=== PATIENT | female | born 1950 | race Caucasian/White ===

== ENCOUNTER 2020-10-04 11:28 | Emergency (ER) | payer MEDICARE, OTHER ==
[~2020-10-04] VITALS: Ht 162.6 cm; Wt 55.8 kg
[~2020-10-04 11:28] MED LIST: ASPI81CH; ASPI81EC PO; ATOR20; B-12500 MCG; Bactrim Ds Tab1 EACH PO; CEPH500 PO; CHOL10002; CHOL10002 PO; COENZYME Q10 PO; CYAN1000 PO; FISH1000; FISH1000 PO; NAPR500 PO; OXYACE5T PO; PRAV20 PO; VITAMIN D PO
[2020-10-04 11:49] LABS: Source, Urine Clean Catch
[2020-10-04 11:56] LABS: Bilirubin, Urine Neg (Neg); Blood, Urine Neg (Neg); Glucose Qualitative, Urine Neg (Neg); Ketones, Urine Neg (Neg); Leukocyte Esterase, Urine Neg (Neg); Nitrite, Urine Neg (Neg); Protein, Urine 2+ (Neg); Urobilinogen, Urine NORM (Normal)
[2020-10-04 12:03] LABS: BASOPHILS ABSOLUTE AUTO 0.05 K/mm3 (0.00-0.23); BASOPHILS PERCENT AUTO 0 % (0-2); EOSINOPHILS ABSOLUTE AUTO 0.02 K/mm3 (0.00-0.68); EOSINOPHILS PERCENT AUTO 0 % (0-6); Hematocrit 48.5 % (33.0-51.0); IMMATURE GRAN ABSOLUTE AUTO 0.08 K/mm3 (0.00-0.10); IMMATURE GRAN PERCENT AUTO 1 % (0-1); LYMPHOCYTES ABSOLUTE AUTO 1.15 K/mm3 (0.84-5.20); LYMPHOCYTES PERCENT AUTO 7 % (21-46); MONOCYTES PERCENT AUTO 6 % (4-13); Mean Corpuscular HGB Conc 30.9 g/dL (31.5-36.5); Mean Corpuscular Volume 84 fL (80-100); Mean Platelet Volume 11.7 fL (9.1-12.4); NEUTROPHILS ABSOLUTE AUTO 14.29 K/mm3 (1.96-9.15); NEUTROPHILS PERCENT AUTO 87 % (41-73); Platelet Count 225 K/mm3 (150-400); RDW Coefficient Variation 13.3 % (11.7-14.2); RDW Standard Deviation 41.1 fL (35.1-46.3); Red Blood Cell Count 5.76 M/mm3 (3.80-5.20); White Blood Cell Count 16.49 K/mm3 (4.00-11.30)
[2020-10-04 12:06] LABS: Appearance, Urine Clear (Clear); Color, Urine Yellow (P-Yellow)
[2020-10-04 12:07] LABS: Red Blood Cells, Urine 0-2 /hpf (0-2)
[2020-10-04 12:08] LABS: Bacteria Few /hpf; Mucus Light (0-Heavy); Squamous Epithelial Cells Mod /hpf (Few)
[2020-10-04 12:38] LABS: Alanine Aminotransfer (ALT/SGP 40 U/L (12-78); Albumin, Blood 3.9 g/dL (3.4-5.0); Albumin/Globulin Ratio 1.1 (0.8-1.8); Alk Phos 152 U/L (50-136); Anion Gap 4 mmol/L (6-16); Aspartate Aminotrans (AST/SGOT 27 U/L (12-37); Bilirubin, Total 0.4 mg/dL (0.1-1.0); Blood Urea Nitrogen 19 mg/dL (8-24); Bun/Creatinine Ratio 20.1 (12.0-20.0); CO2, Blood 31 mmol/L (21-32); Calcium, Blood 9.3 mg/dL (8.5-10.1); Chloride, Blood 105 mmol/L (98-108); Creatinine, Blood 0.95 mg/dL (0.40-1.00); Globulin, Blood 3.7 g/dL (2.2-4.0); Glomerular Filtration Rate >60 (60-); Glucose, Blood 119 mg/dL (70-99); Potassium, Blood 4.1 mmol/L (3.5-5.5); Sodium, Blood 140 mmol/L (136-145); Total Protein, Blood 7.6 g/dL (6.4-8.2)
[2020-10-04] MEDS ORDERED: TRAM50 PO (13:53)
[2020-10-04] MEDS ORDERED: ONDA4ODT MM (13:53)
[2020-10-04] MEDS ORDERED: IBUP600 PO (13:53)
== END 2020-10-04 14:08 | disposition home or self-care (01) ==
LOC: ER 11:28
PROVIDERS: Emergency Medicine
DX: N13.2 Hydronephrosis with renal and ureteral calculous obstruction (principal); Z79.82 Long term (current) use of aspirin; Z79.899 Other long term (current) drug therapy
CPT/HCPCS: 36415; 74176; 80053; 81001; 85025; 96374; 96375; 99284-25; J1885; J2405

== ENCOUNTER → 2022-01-12 | Outpatient (CLI) | payer MEDICARE, OTHER ==
[~2022-01-12] MED LIST changes: +IBUP600 PO; +ONDA4ODT MM; +ROSU10TA; +TRAM50 PO
== END | disposition home or self-care (01) ==
LOC: LAB 08:50 → LAB SHORT 08:50
DX: R82.71 Bacteriuria (principal)
CPT/HCPCS: 87086

== ENCOUNTER 2022-01-24 13:32 | Emergency (ER) | payer MEDICARE, OTHER ==
[~2022-01-24] VITALS: Ht 162.6 cm; Wt 60.3 kg
[2022-01-24 14:21] LABS: BASOPHILS ABSOLUTE AUTO 0.04 K/mm3 (0.00-0.23); BASOPHILS PERCENT AUTO 1 % (0-2); EOSINOPHILS ABSOLUTE AUTO 0.25 K/mm3 (0.00-0.68); EOSINOPHILS PERCENT AUTO 3 % (0-6); Hematocrit 42.1 % (33.0-51.0); IMMATURE GRAN ABSOLUTE AUTO 0.03 K/mm3 (0.00-0.10); IMMATURE GRAN PERCENT AUTO 0 % (0-1); LYMPHOCYTES ABSOLUTE AUTO 1.49 K/mm3 (0.84-5.20); LYMPHOCYTES PERCENT AUTO 18 % (21-46); MONOCYTES PERCENT AUTO 10 % (4-13); Mean Corpuscular HGB 25.5 pg (26.0-34.0); Mean Corpuscular HGB Conc 30.9 g/dL (31.5-36.5); Mean Corpuscular Volume 83 fL (80-100); NEUTROPHILS ABSOLUTE AUTO 5.54 K/mm3 (1.96-9.15); NEUTROPHILS PERCENT AUTO 68 % (41-73); RDW Coefficient Variation 13.5 % (11.7-14.2); RDW Standard Deviation 40.7 fL (35.1-46.3); White Blood Cell Count 8.15 K/mm3 (4.00-11.30)
[2022-01-24 14:27] LABS: Albumin, Blood 3.5 g/dL (3.4-5.0); Bilirubin, Total 0.4 mg/dL (0.1-1.0); Bun/Creatinine Ratio 26.9 (12.0-20.0); Calcium, Blood 9.5 mg/dL (8.5-10.1); Creatinine, Blood 1.04 mg/dL (0.40-1.00); Globulin, Blood 3.5 g/dL (2.2-4.0); Potassium, Blood 3.9 mmol/L (3.5-5.5)
[2022-01-24 14:37] LABS: Platelet Count 188 K/mm3 (150-400)
[2022-01-24] MEDS ORDERED: METO50ER (14:51)
[2022-01-24 16:16] LABS: Source, Urine Clean Catch
[2022-01-24 16:20] LABS: Appearance, Urine Clear (Clear); Bilirubin, Urine Neg (Neg); Blood, Urine Neg (Neg); Color, Urine Yellow (P-Yellow); Glucose Qualitative, Urine Neg (Neg); Ketones, Urine Neg (Neg); Leukocyte Esterase, Urine Neg (Neg); Nitrite, Urine Neg (Neg); Protein, Urine 1+ (Neg); Urobilinogen, Urine NORM (Normal)
== END 2022-01-24 17:14 | disposition home or self-care (01) ==
LOC: ER 13:32
PROVIDERS: Emergency Medicine
DX: R55 Syncope and collapse (principal); R94.5 Abnormal results of liver function studies
CPT/HCPCS: 71046; 80053; 82947; 83880; 84484; 85025; 93005; 93010; 99284-25; J7030

== ENCOUNTER → 2023-04-08 | Outpatient (CLI) | payer MEDICARE, OTHER ==
[~2023-04-08] MED LIST changes: +METO50ER
== END | disposition home or self-care (01) ==
LOC: LAB SHORT 18:35 → LAB 18:35
PROVIDERS: Internal Medicine Endocrinology, Diabetes & Metabolism
DX: K52.9 Noninfective gastroenteritis and colitis, unspecified (principal)
CPT/HCPCS: 82710

== ENCOUNTER 2025-07-27 10:00 | Inpatient (IN) | payer MEDICARE, OTHER ==
[~2025-07-27] VITALS: Ht 162.6 cm; Wt 63.5 kg
[~2025-07-27 10:00] MED LIST changes: -ASPI81CH; +ASPI81CH PO; -ATOR20; +ATOR20 PO; -B-12500 MCG; +B-12500 MCG PO; -CHOL10002; +Crestor40 MG PO; +FISH OIL 1,0001 EA10 PO; -FISH1000; -METO50ER; +METO50ER PO; -ROSU10TA; +VITAMIN D325 MC3 PO
[2025-07-27] MEDS ORDERED: Morphine Sulfate 4 MG/1 ML Injection IV ONE ×2 (10:25→12:50)
[2025-07-27] MEDS ORDERED: Ondansetron HCl 2 MG / ML 2ML Vial IV ONE (10:25)
[2025-07-27 10:32] LABS: BASOPHILS ABSOLUTE AUTO 0.05 K/mm3 (0.00-0.23); BASOPHILS PERCENT AUTO 1 % (0-2); EOSINOPHILS ABSOLUTE AUTO 0.13 K/mm3 (0.00-0.68); EOSINOPHILS PERCENT AUTO 1 % (0-6); Hematocrit 45.6 % (33.0-51.0); Hemoglobin 14.1 g/dL (11.5-16.0); IMMATURE GRAN ABSOLUTE AUTO 0.07 K/mm3 (0.00-0.10); IMMATURE GRAN PERCENT AUTO 1 % (0-1); LYMPHOCYTES ABSOLUTE AUTO 1.68 K/mm3 (0.84-5.20); LYMPHOCYTES PERCENT AUTO 18 % (21-46); MONOCYTES ABSOLUTE AUTO 0.79 K/mm3 (0.16-1.47); MONOCYTES PERCENT AUTO 9 % (4-13); Mean Corpuscular HGB Conc 30.9 g/dL (31.5-36.5); Mean Corpuscular Volume 82 fL (80-100); NEUTROPHILS ABSOLUTE AUTO 6.62 K/mm3 (1.96-9.15); NEUTROPHILS PERCENT AUTO 71 % (41-73); NRBC ABSOLUTE 0.00 K/mm3 (0.00-0.02); NRBC Auto 0.0 /100 WBC (0.0-0.2); Platelet Count 206 K/mm3 (150-400); RDW Coefficient Variation 15.1 % (11.7-14.2); RDW Standard Deviation 45.5 fL (35.1-46.3)
[2025-07-27 10:43] LABS: Anion Gap 8.0 mmol/L (3-11); Blood Urea Nitrogen 31.0 mg/dL (8-24); CO2, Blood 25.0 mmol/L (21-32); Calcium, Blood 9.1 mg/dL (8.5-10.1); Chloride, Blood 111.0 mmol/L (98-108); Creatinine, Blood 0.9 mg/dL (0.40-1.00); Glucose, Blood 112.0 mg/dL (70-99); Potassium, Blood 4.6 mmol/L (3.5-5.5); Sodium, Blood 139.0 mmol/L (136-145)
[2025-07-27] MEDS ORDERED: Morphine Sulfate 4 MG/1 ML Injection IV PRN (13:05)
[2025-07-27] MEDS ORDERED: FLU VACC TS2025(65UP)/MF59C/PF 45 MCG/0.5 ML SYRINGE IM SCH (13:05)
[2025-07-27 14:51] VITALS: BP 145/113
[2025-07-27 14:52] VITALS: BP 159/103
--- NOTE | 2025-07-27 15:37 | NUR ---
ADMIT ER ADMIT WITH LEFT FEMUR FX. PT ALERT AND ORIENTED X4. LEFT FEMUR DEFORMITY NOTED, SUPPORTED WITH PILLOWS. PT REPORTS N/T TO BLE R/T BASELINE NEUROPATHY. ABLE TO WIGGLE TOES, CAP REFILL <3 SECONDS, PEDAL PULSES STRONG AND PALPABLE. PT REPORTS 10/10 PAIN WITH MOVEMENT/REPOSITIONING. MEDICATED IN ER PRIOR TO ARRIVAL. EDUCATED PT ON BUCKS TRACTION FOR COMFORT PRN--PT DECLINED. ICE TO LEFT THIGH. NEW PUREWICK PLACED, PT PLACED IN GOWN, AND REPOSITIONED FOR COMFORT. PT DECLINES NEED FOR PAIN MEDICATION WHEN RESTING. ORIENTED TO CALL LIGHT AND TREATMENT PLAN. SPOUSE AT BEDSIDE FOR SUPPORT. CALL LIGHT WITHIN REACH. ER REPORTED DR. NELSON CONSULTED ON PT IN ER AND PLAN FOR SURGERY TOMORROW.
[2025-07-27 17:20] VITALS: BP 151/79
[2025-07-27 19:27] VITALS: BP 150/84
[2025-07-28] VITALS (16 sets, daily range): BP systolic 114–185; BP diastolic 69–106
[2025-07-28] MEDS ORDERED: CeFAZolin Sodium 2,000 MG in NS 100 ML IV SCH (04:00)
[2025-07-28] MEDS ORDERED: Tranexamic Acid 100 ML IV SCH (04:00)
--- NOTE | 2025-07-28 04:18 | NUR ---
NOC SUMMARY- PT PAIN MANAGED WELL. PT IS VOIDING VIA PUREWICK. ICE PACKS HELP WITH LEG DISCOMFORT. PT HAS GOOD CAP REFILL AND PEDAL PULSES. PT HAS BEEN ABLE TO REST COMFORTABLY. CHG WIPE DOWN COMPLETE. CALL LIGHT IN REACH.
[2025-07-28 05:50] LABS: BASOPHILS ABSOLUTE AUTO 0.03 K/mm3 (0.00-0.23); BASOPHILS PERCENT AUTO 0 % (0-2); EOSINOPHILS ABSOLUTE AUTO 0.29 K/mm3 (0.00-0.68); EOSINOPHILS PERCENT AUTO 2 % (0-6); Hematocrit 44.4 % (33.0-51.0); Hemoglobin 13.6 g/dL (11.5-16.0); IMMATURE GRAN ABSOLUTE AUTO 0.04 K/mm3 (0.00-0.10); IMMATURE GRAN PERCENT AUTO 0 % (0-1); LYMPHOCYTES ABSOLUTE AUTO 1.01 K/mm3 (0.84-5.20); LYMPHOCYTES PERCENT AUTO 8 % (21-46); MONOCYTES ABSOLUTE AUTO 1.15 K/mm3 (0.16-1.47); MONOCYTES PERCENT AUTO 9 % (4-13); Mean Corpuscular HGB Conc 30.6 g/dL (31.5-36.5); Mean Corpuscular Volume 82 fL (80-100); NEUTROPHILS ABSOLUTE AUTO 10.63 K/mm3 (1.96-9.15); NEUTROPHILS PERCENT AUTO 81 % (41-73); NRBC ABSOLUTE 0.00 K/mm3 (0.00-0.02); NRBC Auto 0.0 /100 WBC (0.0-0.2); Platelet Count 184 K/mm3 (150-400); RDW Coefficient Variation 15.2 % (11.7-14.2); RDW Standard Deviation 45.1 fL (35.1-46.3)
[2025-07-28 06:10] LABS: Anion Gap 7.0 mmol/L (3-11); Blood Urea Nitrogen 28.0 mg/dL (8-24); CO2, Blood 28.0 mmol/L (21-32); Calcium, Blood 9.0 mg/dL (8.5-10.1); Chloride, Blood 106.0 mmol/L (98-108); Creatinine, Blood 0.94 mg/dL (0.40-1.00); Glucose, Blood 143.0 mg/dL (70-99); Potassium, Blood 4.4 mmol/L (3.5-5.5); Sodium, Blood 137.0 mmol/L (136-145)
[2025-07-28] MEDS ORDERED: NS 1,000 ML IV SCH (11:40)
[2025-07-28] MEDS ORDERED: FentaNYL Citrate 50 MCG/ML 2 ML Injection IV PRN ×2 (13:50)
[2025-07-28] MEDS ORDERED: Albuterol 2.5 MG/3 ML VIAL INH PRN (13:50)
[2025-07-28] MEDS ORDERED: HYDROmorphone HCl/Pf 1MG SYR IV PRN ×3 (13:50→19:30)
[2025-07-28] MEDS ORDERED: Ondansetron HCl 2 MG / ML 2ML Vial IV PRN ×2 (13:50→19:25)
[2025-07-28] MEDS ORDERED: CeFAZolin Sodium 2,000 MG VIAL ONE (14:40)
[2025-07-28] MEDS ORDERED: Dexamethasone Sod Phos 10 MG/ML 1ML VIAL ONE (16:27)
[2025-07-28] MEDS ORDERED: Ondansetron HCl 2 MG / ML 2ML Vial ONE (16:27)
[2025-07-28] MEDS ORDERED: Phenylephrine HCl 100 MCG/ML-NS 10MLSYR (1MG/10ML) ONE (16:53)
[2025-07-28] MEDS ORDERED: Ketorolac Tromethamine 30mg Vial ONE (17:36)
[2025-07-28] MEDS ORDERED: HYDROmorphone HCl/Pf 1MG SYR ONE (18:04)
[2025-07-28] MEDS ORDERED: Artificial Tear Opth Oint 3.5 GM ONE (19:12)
[2025-07-28] MEDS ORDERED: FLU VACC TS2025-26(6MOS UP)/PF 45 MCG/0.5 ML SYRINGE IM ONE (19:20)
[2025-07-28] MEDS ORDERED: Magnesium Hydroxide Conc 10 ML UDC PO PRN (19:30)
[2025-07-28] MEDS ORDERED: Naloxone HCl 0.4MG / ML 1ML Vial IV PRN (19:30)
[2025-07-29] MEDS ORDERED: CeFAZolin Sodium 2,000 MG in NS 100 ML IV SCH
[2025-07-29 05:22] LABS: BASOPHILS ABSOLUTE AUTO 0.03 K/mm3 (0.00-0.23); BASOPHILS PERCENT AUTO 0 % (0-2); EOSINOPHILS ABSOLUTE AUTO 0.00 K/mm3 (0.00-0.68); EOSINOPHILS PERCENT AUTO 0 % (0-6); Hematocrit 41.6 % (33.0-51.0); Hemoglobin 12.5 g/dL (11.5-16.0); IMMATURE GRAN ABSOLUTE AUTO 0.06 K/mm3 (0.00-0.10); IMMATURE GRAN PERCENT AUTO 1 % (0-1); LYMPHOCYTES ABSOLUTE AUTO 0.40 K/mm3 (0.84-5.20); LYMPHOCYTES PERCENT AUTO 4 % (21-46); MONOCYTES ABSOLUTE AUTO 0.79 K/mm3 (0.16-1.47); MONOCYTES PERCENT AUTO 7 % (4-13); Mean Corpuscular HGB Conc 30.0 g/dL (31.5-36.5); Mean Corpuscular Volume 82 fL (80-100); NEUTROPHILS ABSOLUTE AUTO 10.28 K/mm3 (1.96-9.15); NEUTROPHILS PERCENT AUTO 89 % (41-73); NRBC ABSOLUTE 0.00 K/mm3 (0.00-0.02); NRBC Auto 0.0 /100 WBC (0.0-0.2); Platelet Count 178 K/mm3 (150-400); RDW Coefficient Variation 15.1 % (11.7-14.2); RDW Standard Deviation 45.3 fL (35.1-46.3)
[2025-07-29 05:45] LABS: Anion Gap 7.0 mmol/L (3-11); Blood Urea Nitrogen 30.0 mg/dL (8-24); CO2, Blood 27.0 mmol/L (21-32); Calcium, Blood 8.6 mg/dL (8.5-10.1); Chloride, Blood 108.0 mmol/L (98-108); Creatinine, Blood 1.06 mg/dL (0.40-1.00); Glucose, Blood 128.0 mg/dL (70-99); Magnesium, Blood 2.3 mg/dL (1.6-2.4); Potassium, Blood 4.3 mmol/L (3.5-5.5); Sodium, Blood 138.0 mmol/L (136-145)
--- NOTE | 2025-07-29 06:03 | NUR ---
SHIFT SUMMARY POD 1 ORIF L FEMUR. A&O X4. PT DENIES PAIN. AQUACEL DRESSING C/D/I. POLAR PACK IN PLACE. PT TOLERATING DIET, DENIES N&V. AWAITING POST OP PT EVAL AND MOBILITY. CALL LIGHT WITHIN REACH.
[2025-07-29 07:19] VITALS: BP 164/72
[2025-07-29] MEDS ORDERED: Cholecalciferol 1000 Unit Tablet (=25MCG) PO SCH (09:00)
[2025-07-29] MEDS ORDERED: Crestor40 MG PO (12:24)
[2025-07-29 14:44] VITALS: BP 155/72
--- NOTE | 2025-07-29 17:01 | NUR ---
SUMMARY ASSUMED CARE OF PT @0700. VSS. AXO4. PT HAS ONLY REQUIRED PAIN MEDS PRIOR TO PT/OT AND HAS DENIED NEED FOR THEM SINCE. HAS FOLLOWED [facility] PRECAUTIONS WELL WITH DTAFF SUPERVISION. DRESSING CHANGED WITH DR NELSON. SURGICAL SITE CDI. PT VODIING. TOLERATING PO INTAKE WELL. TITRATED FROM 2LNC TO RA THIS SHIFT WITH SP02 >94% SPOT CHECKS. PT HAS BEENH SITTING IN CHAIR FOR MAJORITY OF SHIFT POST THERAPY BUT HAS GONE TO BSC AND BACK WELL. SPOUSE AT BEDSIDE OFF AND ON. OTHERWISE, PT WITH LITLE TO NO VOICED COMPLAINTS. CALL LIGHT WITHIN REACH.
[2025-07-29 19:13] VITALS: BP 139/57
[2025-07-30 04:48] VITALS: BP 139/68
--- NOTE | 2025-07-30 04:52 | NUR ---
SHIFT SUMMARY POD 2 ORIF L FEMUR. A&O X4. AQUACEL DRESSING X3 C/D/I. PT DENIES PAIN. POLAR PACK IN PLACE. PT REFUSED AMBULATION THIS SHIFT. PT TOLERATING DIET, DENIES N&V. PT RESTING COMFORTABLY IN BED WITH EVEN UNLABORED BREATHING. CALL LIGHT WITHIN REACH.
[2025-07-30 05:26] LABS: BASOPHILS ABSOLUTE AUTO 0.03 K/mm3 (0.00-0.23); BASOPHILS PERCENT AUTO 0 % (0-2); EOSINOPHILS ABSOLUTE AUTO 0.31 K/mm3 (0.00-0.68); EOSINOPHILS PERCENT AUTO 3 % (0-6); Hematocrit 38.1 % (33.0-51.0); Hemoglobin 11.8 g/dL (11.5-16.0); IMMATURE GRAN ABSOLUTE AUTO 0.11 K/mm3 (0.00-0.10); IMMATURE GRAN PERCENT AUTO 1 % (0-1); LYMPHOCYTES ABSOLUTE AUTO 1.07 K/mm3 (0.84-5.20); LYMPHOCYTES PERCENT AUTO 10 % (21-46); MONOCYTES ABSOLUTE AUTO 0.95 K/mm3 (0.16-1.47); MONOCYTES PERCENT AUTO 9 % (4-13); Mean Corpuscular HGB Conc 31.0 g/dL (31.5-36.5); Mean Corpuscular Volume 81 fL (80-100); NEUTROPHILS ABSOLUTE AUTO 7.95 K/mm3 (1.96-9.15); NEUTROPHILS PERCENT AUTO 76 % (41-73); NRBC ABSOLUTE 0.00 K/mm3 (0.00-0.02); NRBC Auto 0.0 /100 WBC (0.0-0.2); Platelet Count 177 K/mm3 (150-400); RDW Coefficient Variation 15.2 % (11.7-14.2); RDW Standard Deviation 45.5 fL (35.1-46.3)
[2025-07-30 05:53] LABS: Alanine Aminotransfer (ALT/SGP 24.0 U/L (12-78); Albumin, Blood 2.8 g/dL (3.4-5.0); Albumin/Globulin Ratio 0.8 (0.8-1.8); Anion Gap 8.0 mmol/L (3-11); Aspartate Aminotrans (AST/SGOT 50.0 U/L (12-37); Bilirubin, Total 0.5 mg/dL (0.1-1.0); Blood Urea Nitrogen 29.0 mg/dL (8-24); CO2, Blood 28.0 mmol/L (21-32); Calcium, Blood 8.7 mg/dL (8.5-10.1); Chloride, Blood 110.0 mmol/L (98-108); Creatinine, Blood 0.94 mg/dL (0.40-1.00); Globulin, Blood 3.4 g/dL (2.2-4.0); Glucose, Blood 107.0 mg/dL (70-99); Magnesium, Blood 2.3 mg/dL (1.6-2.4); Potassium, Blood 4.5 mmol/L (3.5-5.5); Sodium, Blood 141.0 mmol/L (136-145); Total Protein, Blood 6.2 g/dL (6.4-8.2)
[2025-07-30 07:10] VITALS: BP 148/66
[2025-07-30] MEDS ORDERED: HYDROcodone 10-APAP 325 TAB PO PRN (09:55)
[2025-07-30] MEDS ORDERED: Norco 10-325 T1 EACH PO (13:20)
[2025-07-30] MEDS ORDERED: ACET325 PO (13:20)
[2025-07-30 14:40] VITALS: BP 138/78
--- NOTE | 2025-07-30 15:24 | NUR ---
DC'D @1524 ASSUMED CARE OF PT @0700. VSS. AXO4. MAINTAINING [facility] PRECAUTIONS TO L L EG WELL. WROKED WITH PHYSICAL THERAPY - RECOMMENDATION RECEIVED FOR HOME W/ HOME HEALTH AND WHEECHAIR - MD DEMARCO REVIEWED AND PLACED DC ORDERS. SPOUSE WENT AND FILLED WHEELCHAIR PRESCRIPTION. MEDS ELECTRONICALLY SENT TO [facility]. DRESSINGS REMAINED CDI T/O CARE - NO SHADOWING NOTED. EXTRA DRESSINGS PROVIDED FOR HOME USE. DC EDUCATION PROVIDED TO PT AND SPOUSE. PT STATES UNDERSTANDING OF INSTRUCTIONS. IV PULLED. PT WITH BELONGINGS. PT OUT OF ROOM TO VEHICLE AT 1524.
== END 2025-07-30 15:24 | disposition home health service (06) | DRG 482 ==
LOC: ER 10:00 → ERHOLD 13:02 → SURS 13:02
PROVIDERS: Emergency Medicine; Hospitalist; Orthopaedic Surgery; ADMIT Family Medicine
PROC: 0QS906Z Reposition Left Femoral Shaft with Intramedullary Internal Fixation Device, Open Approach (ICD-10-PCS; principal; 2025-07-28 10:30)
DX: S72.352A Displaced comminuted fracture of shaft of left femur, initial encounter for closed fracture (principal); H57.89 Other specified disorders of eye and adnexa; I12.9 Hypertensive chronic kidney disease with stage 1 through stage 4 chronic kidney disease, or unspecified chronic kidney disease; N18.31 Chronic kidney disease, stage 3a; E78.5 Hyperlipidemia, unspecified; M81.0 Age-related osteoporosis without current pathological fracture; M54.50 Low back pain, unspecified; G89.29 Other chronic pain; S50.811A Abrasion of right forearm, initial encounter; G62.9 Polyneuropathy, unspecified; Z90.49 Acquired absence of other specified parts of digestive tract; Z98.890 Other specified postprocedural states; Z79.82 Long term (current) use of aspirin; Z79.899 Other long term (current) drug therapy; V00.131A Fall from skateboard, initial encounter
CPT/HCPCS: 36415; 73552; 73700; 80048; 80053; 83735; 85025; 93005; 93010; 96374; 96375; 96376; 97110; 97116; 97162; 97165; 97530; 97535; 99285-25; A6590; A9270; J0690; J1100; J1171; J1885; J2270; J2371; J2405; J2704; J3480; J7030; J7120